=== PATIENT | male | born 1990 | race Caucasian/White ===

== ENCOUNTER 2018-05-05 07:20 | Inpatient (IN) | payer BC, OTHER ==
[2018-05-05] VITALS (12 sets, daily range): BP systolic 84–104; BP diastolic 59–69
[~2018-05-05] VITALS: Ht 170.2 cm; Wt 59.0 kg
[2018-05-05] MEDS ORDERED: potassium CL 20mEq in D5-1/2NS 1,000 ML IV PRN ×2 (07:26→13:25)
[2018-05-05] MEDS ORDERED: normal saline 1000ml 1,000 ML IV SCH (07:26)
[2018-05-05] MEDS: normal saline 1000ml 1,000 ML IV SCH ×5 (07:33→22:54)
[2018-05-05 07:56] LABS: BASOPHILS # (AUTO) 0.1 X10'3 (0-0.2); BASOPHILS % (AUTO) 0.4 % (0-1); EOSINOPHILS # (AUTO) 0.2 X10'3 (0-0.9); EOSINOPHILS % (AUTO) 0.8 % (0-6); HEMATOCRIT 46.6 % (42.0-52.0); HEMOGLOBIN 15.4 g/dl (14.0-17.9); LYMPHOCYTES # (AUTO) 3.8 X10'3 (1.1-4.8); LYMPHOCYTES % (AUTO) 15.9 % (21-51); MEAN CORPUSCULAR HEMOGLOBIN 31.6 PG (27.0-31.0); MEAN CORPUSCULAR VOLUME 95.7 FL (78-98); MEAN PLATELET VOLUME 8.1 FL (7.4-10.4); MONOCYTES # (AUTO) 2.7 X10'3 (0-0.9); MONOCYTES % (AUTO) 11.1 % (2-12); NEUTROPHILS # (AUTO) 17.2 X10'3 (1.8-7.7); NEUTROPHILS % (AUTO) 71.8 % (42-75); PLATELET COUNT 492 X10'3 (140-440); RED BLOOD COUNT 4.87 X10'6 (4.70-6.10); RED CELL DISTRIBUTION WIDTH 15.1 % (11.5-14.5); WHITE BLOOD COUNT 23.9 X10'3 (4.5-11.0)
[2018-05-05] MEDS: insulin regular, human 10 units/0.1 ml syringe IV PRN ×2 (07:59→12:03)
[2018-05-05 08:00] LABS: ABG HCO3 1.6 mmol/L (22.0-26.0); ABG OXYGEN SATURATION 97.8 % (95-98); ABG PCO2 (T) 11.7 mmHg (35.0-48.0); ABG PH (T) 6.751 (7.350-7.450); ABG PO2 (T) 157.7 mmHg (83-108); ALLEN'S TEST Positive; FCOHb 0.8 % (0.5-1.5); FMetHb 0.1 % (0.3-1.12); FO2Hb 96.9 % (94-100); TOTAL HEMOGLOBIN 13.5 G/dl (14.0-18.0)
[2018-05-05] MEDS ORDERED: sodium bicarbonate (0.9mEq/ml) 44.6 mEq/50ml syringe IV ONE (08:15)
[2018-05-05 08:19] LABS: ALANINE AMINOTRANSFERASE 16 U/L (12-78); ALBUMIN 3.6 G/DL (3.4-5.0); ALBUMIN/GLOBULIN RATIO 1.2 (1.1-1.5); ALKALINE PHOSPHATASE 154 IU/L (46-116); ASPARTATE AMINO TRANSFERASE 8 U/L (10-37); BILIRUBIN,TOTAL 0.5 MG/DL (0.1-1.0); BLOOD UREA NITROGEN 25 MG/DL (7-18); BUN/CREATININE RATIO 14.5 (5.4-32.0); CALCIUM 8.5 MG/DL (8.5-10.1); CHLORIDE 102 MMOL/L (99-107); CREATININE 1.73 MG/DL (0.60-1.10); MAGNESIUM 2.5 MG/DL (1.5-2.4); PHOSPHORUS 7.9 MG/DL (2.3-4.5); POTASSIUM 4.1 MMOL/L (3.5-5.1); SODIUM 138 MMOL/L (135-145); TOTAL PROTEIN 6.6 G/DL (6.4-8.2); eGFR 48 ML/MIN
[2018-05-05] MEDS ORDERED: sodium bicarbonate (8.4%) 1 mEq/ml syringe IV ONE (08:20)
[2018-05-05 08:25] LABS: ANION GAP 31 (8-16); GLUCOSE 560 MG/DL (70-104); TOTAL CARBON DIOXIDE < 5 MMOL/L (24-32)
[2018-05-05] MEDS ORDERED: NORMAL SALINE IV SCH (08:25)
[2018-05-05] MEDS ORDERED: SODIUM BICARBONATE IV SCH (08:25)
[2018-05-05] MEDS ORDERED: potassium Cl 20 mEq SR tablet PO STA (08:31)
[2018-05-05] MEDS: insulin regular, DKA only 100 UNIT in normal saline 100ml IV soln 99 ML IV SCH ×4 (08:52→11:32)
[2018-05-05 09:13] LABS: NUCLEATED RED BLOOD CELLS 1 /100WBC (0-0); PLATELET ESTIMATE INCREASED; SMUDGE CELLS 1+; TOTAL CELLS COUNTED 100
[2018-05-05 09:17] LABS: BURR CELLS FEW
[2018-05-05 09:25] LABS: CLARITY,URINE CLEAR (Clear); COLOR,URINE STRAW (Yellow); GLUCOSE, URINE >=1000 mg/dl (Neg); KETONES,URINE >=80 mg/dl (Neg); LEUKOCYTE ESTERASE ,URINE NEGATIVE (Neg); NITRITES, URINE NEGATIVE (Neg); OCCULT BLOOD,URINE TRACE-INTACT (Neg); PH,URINE 5.5 (4.8-8.0); PROTEIN,URINE 30 mg/dl (Neg); UROBILINOGEN,URINE 0.2 E.U/dL (0.2-1.0)
[2018-05-05 09:33] LABS: UA COLLECTION TYPE URINAL
[2018-05-05] MEDS ORDERED: insulin regular, DKA only 100 UNIT in normal saline 100ml IV soln 99 ML IV SCH ×2 (09:34)
[2018-05-05] MEDS ORDERED: potassium Cl 20 mEq SR tablet PO PRN ×2 (09:35)
[2018-05-05] MEDS ORDERED: ondansetron/PF 4mg/2ml inj IV PRN (09:35)
[2018-05-05] MEDS ORDERED: morphine 4 MG/ML inj SYRINge IV PRN (09:35)
[2018-05-05] MEDS ORDERED: potassium Cl 40MEQ/NS 500ml 500 ML IV PRN ×4 (09:35)
[2018-05-05] MEDS ORDERED: morphine 2 MG/ML inj. syringe IV PRN (09:35)
[2018-05-05] MEDS ORDERED: HYDROcodone/acetaminophen 10/325mg tab PO PRN (09:35)
[2018-05-05] MEDS ORDERED: acetaminophen 325mg tablet PO PRN ×2 (09:35)
[2018-05-05 09:37] LABS: MUCUS STRANDS FEW /LPF (Neg); SQUAMOUS EPITHELIAL CELL,UR FEW /LPF (FEW)
[2018-05-05 09:38] LABS: BACTERIA,URINE FEW /HPF (Neg); HYALINE CASTS 0-3 /LPF (NEGATIVE); RBC,URINE 0-2 /HPF (0-2); WBC,URINE 0-4 /HPF (0-4)
[2018-05-05] MEDS ORDERED: CefTRIAXone 2gm/D5W 50ml 50 ML IV ONE (10:15)
[2018-05-05 10:21] LABS: ALBUMIN 3.3 G/DL (3.4-5.0); BLOOD UREA NITROGEN 24 MG/DL (7-18); BUN/CREATININE RATIO 17.3 (5.4-32.0); CALCIUM 7.7 MG/DL (8.5-10.1); CHLORIDE 110 MMOL/L (99-107); CREATININE 1.39 MG/DL (0.60-1.10); GLUCOSE 402 MG/DL (70-104); POTASSIUM 3.2 MMOL/L (3.5-5.1); SODIUM 145 MMOL/L (135-145); eGFR 62 ML/MIN
[2018-05-05 10:22] LABS: ANION GAP 30 (8-16); TOTAL CARBON DIOXIDE < 5 MMOL/L (24-32)
[2018-05-05 11:58] LABS: ANION GAP 29 (8-16); BLOOD UREA NITROGEN 23 MG/DL (7-18); BUN/CREATININE RATIO 19.2 (5.4-32.0); CALCIUM 7.8 MG/DL (8.5-10.1); CHLORIDE 111 MMOL/L (99-107); GLUCOSE 307 MG/DL (70-104); POTASSIUM 3.4 MMOL/L (3.5-5.1); SODIUM 146 MMOL/L (135-145); eGFR 74 ML/MIN
[2018-05-05 12:02] LABS: TOTAL CARBON DIOXIDE 6.2 MMOL/L (24-32)
[2018-05-05] MEDS ORDERED: potassium CL 20mEq in D5-1/2NS 1,000 ML IV SCH (13:25)
[2018-05-05 14:36] LABS: ANION GAP 22 (8-16); BLOOD UREA NITROGEN 21 MG/DL (7-18); BUN/CREATININE RATIO 18.8 (5.4-32.0); CHLORIDE 115 MMOL/L (99-107); CREATININE 1.12 MG/DL (0.60-1.10); GLUCOSE 175 MG/DL (70-104); SODIUM 150 MMOL/L (135-145)
[2018-05-05 14:37] LABS: CALCIUM 8.2 MG/DL (8.5-10.1); eGFR 80 ML/MIN
[2018-05-05 14:45] LABS: POTASSIUM 2.9 MMOL/L (3.5-5.1); TOTAL CARBON DIOXIDE 13.3 MMOL/L (24-32)
[2018-05-05] MEDS: potassium Cl 20 mEq SR tablet PO PRN ×2 (14:49→20:00)
[2018-05-05] MEDS ORDERED: HUM7525 SQ (15:26)
[2018-05-05] MEDS ORDERED: GABA-532 PO (15:26)
[2018-05-05] MEDS ORDERED: LANTUS SQ (15:26)
[2018-05-05] MEDS: potassium CL 20mEq in D5-1/2NS 1,000 ML IV PRN ×2 (15:54→21:01)
[2018-05-05 16:49] LABS: HEMOGLOBIN A1C 11.3 % (4.5-6.2)
[2018-05-05 17:51] LABS: ALBUMIN 2.8 G/DL (3.4-5.0); ANION GAP 16 (8-16); BLOOD UREA NITROGEN 18 MG/DL (7-18); BUN/CREATININE RATIO 16.4 (5.4-32.0); CALCIUM 8.1 MG/DL (8.5-10.1); CHLORIDE 113 MMOL/L (99-107); GLUCOSE 129 MG/DL (70-104); PHOSPHORUS 1.5 MG/DL (2.3-4.5); POTASSIUM 3.1 MMOL/L (3.5-5.1); SODIUM 146 MMOL/L (135-145); TOTAL CARBON DIOXIDE 17.3 MMOL/L (24-32); eGFR 82 ML/MIN
[2018-05-05] MEDS: heparin, porcine 5000 units/ml vial SQ SCH (20:00)
[2018-05-05] MEDS ORDERED: insulin glargine (Lantus) pen - multi-dose SQ SCH ×2 (20:00→21:00)
[2018-05-05] MEDS: docusate sod 100mg capsule PO SCH (20:00)
[2018-05-05] MEDS ORDERED: glucagon, human recombinant 1mg kit SUBCUT PRN (20:15)
[2018-05-05] MEDS ORDERED: dextrose 50%-water 50ml dispensing syringe IV PRN ×2 (20:15)
[2018-05-05] MEDS ORDERED: dextrose ORAL solution 15 GM/59 ML bottle PO PRN ×2 (20:15)
[2018-05-05 20:24] LABS: ALBUMIN 2.8 G/DL (3.4-5.0); ANION GAP 12 (8-16); BLOOD UREA NITROGEN 16 MG/DL (7-18); BUN/CREATININE RATIO 17.6 (5.4-32.0); CALCIUM 8.1 MG/DL (8.5-10.1); CHLORIDE 114 MMOL/L (99-107); CREATININE 0.91 MG/DL (0.60-1.10); GLUCOSE 216 MG/DL (70-104); PHOSPHORUS 1.8 MG/DL (2.3-4.5); POTASSIUM 3.3 MMOL/L (3.5-5.1); SODIUM 145 MMOL/L (135-145); TOTAL CARBON DIOXIDE 18.6 MMOL/L (24-32); eGFR > 90 ML/MIN
[2018-05-05 21:00] LABS: ABG BASE EXCESS -6.9 mmol/L (-2.0-3.0); ABG HCO3 17.6 mmol/L (22.0-26.0); ABG OXYGEN SATURATION 97.1 % (95-98); ABG PCO2 (T) 32.4 mmHg (35.0-48.0); ABG PH (T) 7.353 (7.350-7.450); ABG PO2 (T) 102.5 mmHg (83-108); ALLEN'S TEST Positive; FCOHb 0.3 % (0.5-1.5); FMetHb 0.3 % (0.3-1.12); FO2Hb 96.5 % (94-100); TOTAL HEMOGLOBIN 12.9 G/dl (14.0-18.0)
[2018-05-05] MEDS: insulin glargine (Lantus) pen - multi-dose SQ SCH (21:18)
[2018-05-05] MEDS: insulin Lispro (HumaLOG) vial - multi-dose SQ SCH (21:51)
[2018-05-06] VITALS (12 sets, daily range): BP systolic 84–103; BP diastolic 58–71
[2018-05-06] MEDS: potassium Cl 20 mEq SR tablet PO PRN ×3 (01:18→12:16)
[2018-05-06 05:27] LABS: BASOPHILS # (AUTO) 0.1 X10'3 (0-0.2); BASOPHILS % (AUTO) 1.5 % (0-1); EOSINOPHILS # (AUTO) 0.1 X10'3 (0-0.9); HEMATOCRIT 35.8 % (42.0-52.0); HEMOGLOBIN 12.1 g/dl (14.0-17.9); LYMPHOCYTES # (AUTO) 1.3 X10'3 (1.1-4.8); LYMPHOCYTES % (AUTO) 16.7 % (21-51); MEAN CORPUSCULAR HEMOGLOBIN 31.5 PG (27.0-31.0); MEAN CORPUSCULAR HGB CONC 33.7 % (33.0-36.5); MEAN CORPUSCULAR VOLUME 93.2 FL (78-98); MEAN PLATELET VOLUME 8.2 FL (7.4-10.4); MONOCYTES # (AUTO) 0.9 X10'3 (0-0.9); MONOCYTES % (AUTO) 11.6 % (2-12); NEUTROPHILS # (AUTO) 5.6 X10'3 (1.8-7.7); NEUTROPHILS % (AUTO) 69.2 % (42-75); PLATELET COUNT 263 X10'3 (140-440); RED BLOOD COUNT 3.84 X10'6 (4.70-6.10); WHITE BLOOD COUNT 8.1 X10'3 (4.5-11.0)
[2018-05-06] MEDS: normal saline 1000ml 1,000 ML IV SCH (05:34)
[2018-05-06 05:40] LABS: ALANINE AMINOTRANSFERASE 12 U/L (12-78); ALBUMIN 2.7 G/DL (3.4-5.0); ALBUMIN/GLOBULIN RATIO 1.1 (1.1-1.5); ALKALINE PHOSPHATASE 101 IU/L (46-116); ANION GAP 10 (8-16); ASPARTATE AMINO TRANSFERASE 8 U/L (10-37); BILIRUBIN,TOTAL 0.5 MG/DL (0.1-1.0); BLOOD UREA NITROGEN 15 MG/DL (7-18); BUN/CREATININE RATIO 17.9 (5.4-32.0); CALCIUM 8.8 MG/DL (8.5-10.1); CHLORIDE 110 MMOL/L (99-107); CREATININE 0.84 MG/DL (0.60-1.10); GLUCOSE 120 MG/DL (70-104); MAGNESIUM 1.5 MG/DL (1.5-2.4); POTASSIUM 3.3 MMOL/L (3.5-5.1); SODIUM 141 MMOL/L (135-145); TOTAL PROTEIN 5.2 G/DL (6.4-8.2); eGFR > 90 ML/MIN
[2018-05-06] MEDS: docusate sod 100mg capsule PO SCH (07:59)
[2018-05-06] MEDS: heparin, porcine 5000 units/ml vial SQ SCH (07:59)
[2018-05-06] MEDS ORDERED: K and/or MAG REPLACEMENT MC SCH (08:00)
[2018-05-06] MEDS: insulin glargine (Lantus) pen - multi-dose SQ SCH (08:03)
[2018-05-06] MEDS: insulin Lispro (HumaLOG) vial - multi-dose SQ SCH ×2 (08:42→13:24)
== END 2018-05-06 13:29 | disposition home or self-care (01) | DRG 639 ==
LOC: ER 07:21 → ED HOLD 09:34 → ICU 2S 13:14
PROVIDERS: ADMIT Internal Medicine Critical Care Medicine; ATTEND Internal Medicine Critical Care Medicine
DX: E10.10 Type 1 diabetes mellitus with ketoacidosis without coma (principal); E87.6 Hypokalemia; G89.29 Other chronic pain; Z79.4 Long term (current) use of insulin; Z91.19 Patient's noncompliance with other medical treatment and regimen
CPT/HCPCS: 36415; 36600; 71045; 80048; 80053; 81001; 82803; 82948; 83036; 83605; 83735; 83930; 84100; 84145; 85018; 85025; 87040; 87070; 96361; 96365; 97116; 97162; 97530; 99291; G0378; J0696; J1644; J1815; J3480; J7030

== ENCOUNTER 2018-06-26 18:15 | Emergency (ER) | payer BC, MEDICAID, OTHER ==
[~2018-06-26] VITALS: Ht 154.9 cm; Wt 47.2 kg
[~2018-06-26 18:15] MED LIST: GABA-532 PO; HUM7525 SQ; LANTUS SQ
[2018-06-26] MEDS ORDERED: aspirin 81mg tab.chew PO ONE (18:25)
[2018-06-26] MEDS ORDERED: morphine 4 MG/ML inj SYRINge IV ONE (18:55)
[2018-06-26] MEDS ORDERED: normal saline 1000ML IV soln IVB ONE (18:55)
[2018-06-26] MEDS ORDERED: ondansetron/PF 4mg/2ml inj IV ONE (18:55)
[2018-06-26] MEDS ORDERED: LORazepam 2 mg/ml vial IV ONE (18:55)
[2018-06-26 18:56] LABS: BASOPHILS % (AUTO) 0.4 % (0-1); EOSINOPHILS # (AUTO) 0.1 X10'3 (0-0.9); EOSINOPHILS % (AUTO) 1.1 % (0-6); HEMATOCRIT 44.3 % (42.0-52.0); HEMOGLOBIN 15.2 g/dl (14.0-17.9); LYMPHOCYTES # (AUTO) 2.8 X10'3 (1.1-4.8); LYMPHOCYTES % (AUTO) 41.2 % (21-51); MEAN CORPUSCULAR HEMOGLOBIN 31.9 PG (27.0-31.0); MEAN CORPUSCULAR HGB CONC 34.4 % (33.0-36.5); MEAN CORPUSCULAR VOLUME 92.6 FL (78-98); MONOCYTES # (AUTO) 0.7 X10'3 (0-0.9); MONOCYTES % (AUTO) 10.1 % (2-12); NEUTROPHILS # (AUTO) 3.2 X10'3 (1.8-7.7); NEUTROPHILS % (AUTO) 47.2 % (42-75); PLATELET COUNT 423 X10'3 (140-440); RED BLOOD COUNT 4.78 X10'6 (4.70-6.10); RED CELL DISTRIBUTION WIDTH 14.2 % (11.5-14.5); WHITE BLOOD COUNT 6.8 X10'3 (4.5-11.0)
[2018-06-26] MEDS ORDERED: iohexol 350MG/ML 100ml bottle IV ONE (18:56)
[2018-06-26 19:02] LABS: ALANINE AMINOTRANSFERASE 25 U/L (12-78); ALBUMIN 3.9 G/DL (3.4-5.0); ALBUMIN/GLOBULIN RATIO 1.3 (1.1-1.5); ALKALINE PHOSPHATASE 120 IU/L (46-116); ANION GAP 15 (8-16); ASPARTATE AMINO TRANSFERASE 4 U/L (10-37); BILIRUBIN,TOTAL 0.7 MG/DL (0.1-1.0); BLOOD UREA NITROGEN 17 MG/DL (7-18); BUN/CREATININE RATIO 17.2 (5.4-32.0); CALCIUM 9.1 MG/DL (8.5-10.1); CHLORIDE 99 MMOL/L (99-107); CREATININE 0.99 MG/DL (0.60-1.10); GLUCOSE 214 MG/DL (70-104); SODIUM 138 MMOL/L (135-145); TOTAL CARBON DIOXIDE 23.8 MMOL/L (24-32); eGFR > 90 ML/MIN
[2018-06-26] MEDS ORDERED: potassium Cl 20 mEq SR tablet PO STA (19:08)
[2018-06-26 19:10] LABS: INR 0.9 INR; PARTIAL THROMBOPLASTIN TIME 24 SECONDS (22-32); PROTHROMBIN TIME 9.5 SECONDS (9.0-12.0)
[2018-06-26 19:26] LABS: ABG BASE EXCESS -3.2 mmol/L (-2.0-3.0); ABG HCO3 21.2 mmol/L (22.0-26.0); ABG OXYGEN SATURATION 92.3 % (95-98); ABG PCO2 (T) 36.2 mmHg (35.0-48.0); ABG PH (T) 7.386 (7.350-7.450); ABG PO2 (T) 65.9 mmHg (83-108); FCOHb 3.8 % (0.5-1.5); FMetHb 0.3 % (0.3-1.12); FO2Hb 88.5 % (94-100); RESPIRATORY RATE (OBSERVED) 15 b/min; TOTAL HEMOGLOBIN 13.2 G/dl (14.0-18.0)
--- NOTE | 2018-06-26 19:40 | NUR ---
UNABLE TO PULL K-DUR, DESPITE CALLS TO PHARMACY
[2018-06-26 20:06] LABS: URINE AMPHETAMINE SCREEN NEGATIVE (Neg); URINE BARBITUATE SCREEN NEGATIVE (Neg); URINE BENZODIAZEPINES SCREEN NEGATIVE (Neg); URINE CANNABINOID SCREEN NEGATIVE (Neg); URINE COCAINE SCREEN NEGATIVE (Neg); URINE METHADONE SCREEN NEGATIVE (Neg); URINE OPIATE SCREEN POSITIVE (Neg); URINE PHENCYCLIDINE SCREEN NEGATIVE (Neg)
[2018-06-26] MEDS ORDERED: ACET-3067 PO (20:14)
[2018-06-26 20:23] VITALS: BP 120/82
== END 2018-06-26 20:36 | disposition home or self-care (01) ==
LOC: ER 18:15
DX: R07.81 Pleurodynia (principal); E10.9 Type 1 diabetes mellitus without complications; G89.29 Other chronic pain; M54.9 Dorsalgia, unspecified; F12.90 Cannabis use, unspecified, uncomplicated; Z79.4 Long term (current) use of insulin
CPT/HCPCS: 36415; 36600; 71045; 71275; 80053; 80305; 82803; 82948; 84484; 85018; 85025; 85610; 85730; 93005; 96374; 96375; 99284; J2060; J2270; J2405; J7030; Q9967; 96361

== ENCOUNTER 2018-06-28 18:40 | Emergency (ER) | payer BC, MEDICAID, OTHER ==
[~2018-06-28] VITALS: Ht 175.3 cm; Wt 56.8 kg
[~2018-06-28 18:40] MED LIST changes: +ACET-3067 PO
[2018-06-28 19:06] LABS: BASOPHILS % (AUTO) 0.6 % (0-1); EOSINOPHILS # (AUTO) 0.1 X10'3 (0-0.9); EOSINOPHILS % (AUTO) 1.2 % (0-6); HEMATOCRIT 48.5 % (42.0-52.0); HEMOGLOBIN 16.8 g/dl (14.0-17.9); LYMPHOCYTES # (AUTO) 2.5 X10'3 (1.1-4.8); LYMPHOCYTES % (AUTO) 38.4 % (21-51); MEAN CORPUSCULAR HEMOGLOBIN 31.9 PG (27.0-31.0); MEAN CORPUSCULAR HGB CONC 34.7 % (33.0-36.5); MEAN CORPUSCULAR VOLUME 92.1 FL (78-98); MEAN PLATELET VOLUME 7.2 FL (7.4-10.4); MONOCYTES # (AUTO) 0.5 X10'3 (0-0.9); MONOCYTES % (AUTO) 7.8 % (2-12); NEUTROPHILS # (AUTO) 3.4 X10'3 (1.8-7.7); PLATELET COUNT 535 X10'3 (140-440); RED BLOOD COUNT 5.27 X10'6 (4.70-6.10); RED CELL DISTRIBUTION WIDTH 14.3 % (11.5-14.5); WHITE BLOOD COUNT 6.5 X10'3 (4.5-11.0)
[2018-06-28 19:27] LABS: PARTIAL THROMBOPLASTIN TIME 25 SECONDS (22-32); PROTHROMBIN TIME 9.7 SECONDS (9.0-12.0)
[2018-06-28 19:28] LABS: ALANINE AMINOTRANSFERASE 21 U/L (12-78); ALBUMIN 4.2 G/DL (3.4-5.0); ALBUMIN/GLOBULIN RATIO 1.2 (1.1-1.5); ALKALINE PHOSPHATASE 119 IU/L (46-116); ANION GAP 20 (8-16); ASPARTATE AMINO TRANSFERASE 0 U/L (10-37); BILIRUBIN,TOTAL 0.6 MG/DL (0.1-1.0); BLOOD UREA NITROGEN 14 MG/DL (7-18); BUN/CREATININE RATIO 12.8 (5.4-32.0); CALCIUM 9.3 MG/DL (8.5-10.1); CHLORIDE 98 MMOL/L (99-107); CREATININE 1.09 MG/DL (0.60-1.10); GLUCOSE 265 MG/DL (70-104); POTASSIUM 3.1 MMOL/L (3.5-5.1); SODIUM 138 MMOL/L (135-145); TOTAL CARBON DIOXIDE 19.8 MMOL/L (24-32); TOTAL PROTEIN 7.6 G/DL (6.4-8.2); eGFR 82 ML/MIN
[2018-06-28] MEDS ORDERED: ondansetron/PF 4mg/2ml inj IV ONE (20:20)
[2018-06-28 20:25] LABS: ETHANOL < 0.010 GM/DL (0.0-0.010)
[2018-06-28] MEDS ORDERED: sucralfate 1 gm tablet PO ONE (20:35)
[2018-06-28] MEDS ORDERED: LIDOcaine Viscous 15ml cup PO ONE (20:35)
[2018-06-28] MEDS ORDERED: mag hydrox/Alum hydrox/simeth 30ml oral suspension PO ONE (20:35)
[2018-06-28] MEDS ORDERED: famotidine/PF 10 mg/ml inj IV ONE (20:35)
[2018-06-28] MEDS: morphine 4 MG/ML inj SYRINge IV PRN ×2 (20:35→21:44)
[2018-06-28] MEDS ORDERED: potassium Cl oral solution 20 MEQ/15 ML PO ONE (20:55)
[2018-06-28 20:56] LABS: CLARITY,URINE CLEAR (Clear); COLOR,URINE YELLOW (Yellow); GLUCOSE, URINE >=1000 mg/dl (Neg); KETONES,URINE >=80 mg/dl (Neg); LEUKOCYTE ESTERASE ,URINE NEGATIVE (Neg); NITRITES, URINE NEGATIVE (Neg); OCCULT BLOOD,URINE NEGATIVE (Neg); PROTEIN,URINE 30 mg/dl (Neg); UROBILINOGEN,URINE 0.2 E.U/dL (0.2-1.0)
[2018-06-28 21:03] LABS: UA COLLECTION TYPE CLN CATCH MIDSTREAM
[2018-06-28 21:07] LABS: BACTERIA,URINE FEW /HPF (Neg); RBC,URINE 0-2 /HPF (0-2); SQUAMOUS EPITHELIAL CELL,UR NONE SEEN /LPF (FEW); WBC,URINE 0-4 /HPF (0-4)
[2018-06-28 21:11] LABS: URINE AMPHETAMINE SCREEN NEGATIVE (Neg); URINE BARBITUATE SCREEN NEGATIVE (Neg); URINE BENZODIAZEPINES SCREEN NEGATIVE (Neg); URINE CANNABINOID SCREEN NEGATIVE (Neg); URINE COCAINE SCREEN NEGATIVE (Neg); URINE METHADONE SCREEN NEGATIVE (Neg); URINE OPIATE SCREEN POSITIVE (Neg); URINE PHENCYCLIDINE SCREEN NEGATIVE (Neg)
[2018-06-28 21:18] LABS: D-DIMER < 0.19 MG/L FEU (0-0.50)
[2018-06-28] MEDS ORDERED: ketorolac trometh. 30mg/ml inj. IV ONE (21:25)
[2018-06-28 21:51] VITALS: BP 116/85
== END 2018-06-28 21:51 | disposition home or self-care (01) ==
LOC: ER 18:40
DX: E10.65 Type 1 diabetes mellitus with hyperglycemia (principal); E86.0 Dehydration; E87.6 Hypokalemia; G89.29 Other chronic pain; M54.9 Dorsalgia, unspecified; F12.90 Cannabis use, unspecified, uncomplicated
CPT/HCPCS: 36415; 71045; 80053; 80305; 80320; 81001; 82948; 84484; 85025; 85379; 85610; 85730; 93005; 96374; 96375; 99284; J1885; J2270; J2405; J3490

== ENCOUNTER 2018-07-08 21:25 | Emergency (ER) | payer BC, MEDICAID, OTHER ==
[~2018-07-08] VITALS: Ht 175.3 cm; Wt 54.8 kg
[~2018-07-08 21:25] MED LIST changes: -ACET-3067 PO
[2018-07-08 21:33] VITALS: BP 122/87
[2018-07-08] MEDS ORDERED: ketorolac tromethamine 15mg/ml inj. IM ONE (22:20)
[2018-07-08 22:55] LABS: CLARITY,URINE CLEAR (Clear); COLOR,URINE YELLOW (Yellow); GLUCOSE, URINE >=1000 mg/dl (Neg); KETONES,URINE 40 mg/dl (Neg); LEUKOCYTE ESTERASE ,URINE NEGATIVE (Neg); NITRITES, URINE NEGATIVE (Neg); OCCULT BLOOD,URINE NEGATIVE (Neg); PROTEIN,URINE NEGATIVE (Neg); UROBILINOGEN,URINE 0.2 E.U/dL (0.2-1.0)
[2018-07-08 23:03] LABS: UA COLLECTION TYPE CLN CATCH MIDSTREAM
[2018-07-08 23:05] LABS: BACTERIA,URINE FEW /HPF (Neg); RBC,URINE 0-2 /HPF (0-2); SQUAMOUS EPITHELIAL CELL,UR FEW /LPF (FEW); WBC,URINE NONE SEEN /HPF (0-4)
[2018-07-08] MEDS ORDERED: TRAM1TAB7 PO (23:07)
== END 2018-07-08 23:18 | disposition home or self-care (01) ==
LOC: ER 21:25
DX: N50.819 Testicular pain, unspecified (principal); E11.9 Type 2 diabetes mellitus without complications; G89.29 Other chronic pain; F12.90 Cannabis use, unspecified, uncomplicated; Z79.4 Long term (current) use of insulin; Z79.899 Other long term (current) drug therapy
CPT/HCPCS: 36415; 81001; 87491; 87591; 96372; 99283; J1885

== ENCOUNTER 2018-07-11 16:51 | Emergency (ER) | payer BC, MEDICAID, OTHER ==
[~2018-07-11] VITALS: Ht 175.3 cm; Wt 55.9 kg
[~2018-07-11 16:51] MED LIST changes: +TRAM1TAB7 PO
[2018-07-11] MEDS ORDERED: ondansetron/PF 4mg/2ml inj IV ONE (17:05)
[2018-07-11] MEDS ORDERED: normal saline 1000ML IV soln IVB ONE (17:05)
[2018-07-11 17:23] LABS: BASOPHILS % (AUTO) 0.3 % (0-1); EOSINOPHILS # (AUTO) 0.1 X10'3 (0-0.9); EOSINOPHILS % (AUTO) 0.8 % (0-6); HEMATOCRIT 50.5 % (42.0-52.0); HEMOGLOBIN 17.4 g/dl (14.0-17.9); LYMPHOCYTES % (AUTO) 25.8 % (21-51); MEAN CORPUSCULAR HEMOGLOBIN 31.6 PG (27.0-31.0); MEAN CORPUSCULAR HGB CONC 34.4 g/dL (33.0-36.5); MEAN CORPUSCULAR VOLUME 91.8 FL (78-98); MEAN PLATELET VOLUME 7.7 FL (7.4-10.4); MONOCYTES # (AUTO) 0.6 X10'3 (0-0.9); NEUTROPHILS # (AUTO) 5.2 X10'3 (1.8-7.7); NEUTROPHILS % (AUTO) 66.1 % (42-75); PLATELET COUNT 399 X10'3 (140-440); RED CELL DISTRIBUTION WIDTH 14.1 % (11.5-14.5); WHITE BLOOD COUNT 7.9 X10'3 (4.5-11.0)
[2018-07-11 17:42] LABS: ALANINE AMINOTRANSFERASE 24 U/L (12-78); ALBUMIN/GLOBULIN RATIO 1.2 (1.1-1.5); ALKALINE PHOSPHATASE 121 IU/L (46-116); ANION GAP 23 (8-16); ASPARTATE AMINO TRANSFERASE 11 U/L (10-37); BILIRUBIN,TOTAL 0.9 MG/DL (0.1-1.0); BLOOD UREA NITROGEN 19 MG/DL (7-18); CALCIUM 9.4 MG/DL (8.5-10.1); CHLORIDE 98 MMOL/L (99-107); CREATININE 1.12 MG/DL (0.60-1.10); GLUCOSE 292 MG/DL (70-104); LIPASE 77 U/L (73-393); POTASSIUM 4.1 MMOL/L (3.5-5.1); SODIUM 136 MMOL/L (135-145); TOTAL CARBON DIOXIDE 15.4 MMOL/L (24-32); TOTAL PROTEIN 7.4 G/DL (6.4-8.2); eGFR 80 ML/MIN
[2018-07-11 18:13] LABS: D-DIMER < 0.19 MG/L FEU (0-0.50)
[2018-07-11 18:16] LABS: CLARITY,URINE CLEAR (Clear); COLOR,URINE STRAW (Yellow); GLUCOSE, URINE 500 mg/dl (Neg); KETONES,URINE >=80 mg/dl (Neg); LEUKOCYTE ESTERASE ,URINE NEGATIVE (Neg); NITRITES, URINE NEGATIVE (Neg); OCCULT BLOOD,URINE NEGATIVE (Neg); PH,URINE 5.5 (4.8-8.0); PROTEIN,URINE TRACE mg/dl (Neg); UROBILINOGEN,URINE 0.2 E.U/dL (0.2-1.0)
[2018-07-11 18:24] LABS: MUCUS STRANDS NONE SEEN /LPF (Neg); RENAL CELLS, URINE FEW /HPF; SQUAMOUS EPITHELIAL CELL,UR NONE SEEN /LPF (FEW); UA COLLECTION TYPE CLN CATCH MIDSTREAM
[2018-07-11 18:25] LABS: BACTERIA,URINE NONE SEEN /HPF (Neg); RBC,URINE 0-2 /HPF (0-2); WBC,URINE 0-4 /HPF (0-4)
[2018-07-11] MEDS ORDERED: LORazepam 2 mg/ml vial IV ONE (18:25)
[2018-07-11] MEDS ORDERED: ketorolac trometh. 30mg/ml inj. IV ONE (18:25)
[2018-07-11 18:27] LABS: URINE AMPHETAMINE SCREEN NEGATIVE (Neg); URINE BARBITUATE SCREEN NEGATIVE (Neg); URINE BENZODIAZEPINES SCREEN NEGATIVE (Neg); URINE CANNABINOID SCREEN NEGATIVE (Neg); URINE COCAINE SCREEN NEGATIVE (Neg); URINE METHADONE SCREEN NEGATIVE (Neg); URINE OPIATE SCREEN NEGATIVE (Neg); URINE PHENCYCLIDINE SCREEN NEGATIVE (Neg)
[2018-07-11 19:22] VITALS: BP 109/78
== END 2018-07-11 19:23 | disposition home or self-care (01) ==
LOC: ER 16:52
DX: R07.1 Chest pain on breathing (principal); R00.0 Tachycardia, unspecified; R06.02 Shortness of breath; R11.0 Nausea; R10.9 Unspecified abdominal pain; G89.29 Other chronic pain; E10.9 Type 1 diabetes mellitus without complications; F17.200 Nicotine dependence, unspecified, uncomplicated; F12.90 Cannabis use, unspecified, uncomplicated; Z79.4 Long term (current) use of insulin
CPT/HCPCS: 36415; 71045; 80053; 80305; 81001; 83690; 84484; 85025; 85379; 93005; 96374; 96375; 99284; J1885; J2060; J2405; J7030

== ENCOUNTER 2018-07-23 12:04 | Inpatient (IN) | payer BC, MEDICAID, OTHER ==
[~2018-07-23] VITALS: Ht 175.3 cm; Wt 49.0 kg
[~2018-07-23 12:04] MED LIST changes: -TRAM1TAB7 PO
[2018-07-23] MEDS ORDERED: normal saline 1000ML IV soln IV ONE (12:25)
[2018-07-23] MEDS ORDERED: ondansetron/PF 4mg/2ml inj IV ONE (12:30)
[2018-07-23] MEDS ORDERED: insulin regular, human 10 units/0.1 ml syringe IV ONE (12:30)
[2018-07-23] MEDS ORDERED: insulin regular, human 100 UNIT in normal saline 100ml IV soln 100 ML IV PRN ×2 (12:30)
[2018-07-23] MEDS ORDERED: morphine 2 MG/ML inj. syringe IV PRN (12:30)
[2018-07-23 12:45] LABS: BASOPHILS % (AUTO) 0.3 % (0-1); EOSINOPHILS % (AUTO) 0.1 % (0-6); HEMATOCRIT 51.1 % (42.0-52.0); HEMOGLOBIN 17.6 g/dl (14.0-17.9); LYMPHOCYTES # (AUTO) 1.5 X10'3 (1.1-4.8); LYMPHOCYTES % (AUTO) 19.1 % (21-51); MEAN CORPUSCULAR HEMOGLOBIN 31.5 PG (27.0-31.0); MEAN CORPUSCULAR HGB CONC 34.4 g/dL (33.0-36.5); MEAN CORPUSCULAR VOLUME 91.6 FL (78-98); MEAN PLATELET VOLUME 7.8 FL (7.4-10.4); MONOCYTES # (AUTO) 0.6 X10'3 (0-0.9); MONOCYTES % (AUTO) 7.4 % (2-12); NEUTROPHILS # (AUTO) 5.7 X10'3 (1.8-7.7); NEUTROPHILS % (AUTO) 73.1 % (42-75); PLATELET COUNT 462 X10'3 (140-440); RED BLOOD COUNT 5.58 X10'6 (4.70-6.10); RED CELL DISTRIBUTION WIDTH 13.9 % (11.5-14.5); WHITE BLOOD COUNT 7.8 X10'3 (4.5-11.0)
[2018-07-23 12:57] LABS: PROTHROMBIN TIME 10.2 SECONDS (9.0-12.0)
[2018-07-23 13:10] LABS: ALANINE AMINOTRANSFERASE 21 U/L (12-78); ALBUMIN 4.1 G/DL (3.4-5.0); ALBUMIN/GLOBULIN RATIO 1.2 (1.1-1.5); ALKALINE PHOSPHATASE 113 IU/L (46-116); ANION GAP 25 (8-16); ASPARTATE AMINO TRANSFERASE 9 U/L (10-37); BILIRUBIN,TOTAL 0.9 MG/DL (0.1-1.0); BLOOD UREA NITROGEN 25 MG/DL (7-18); BUN/CREATININE RATIO 17.7 (5.4-32.0); CALCIUM 9.1 MG/DL (8.5-10.1); CHLORIDE 90 MMOL/L (99-107); CREATININE 1.41 MG/DL (0.60-1.10); LIPASE 102 U/L (73-393); MAGNESIUM 1.9 MG/DL (1.5-2.4); SODIUM 125 MMOL/L (135-145); TOTAL PROTEIN 7.5 G/DL (6.4-8.2); eGFR 61 ML/MIN
[2018-07-23 13:12] LABS: GLUCOSE 600 MG/DL (70-104); TOTAL CARBON DIOXIDE 10.4 MMOL/L (24-32)
[2018-07-23] MEDS ORDERED: normal saline 1000ml 1,000 ML IV SCH (14:18)
[2018-07-23] MEDS ORDERED: acetaminophen 325mg tablet PO PRN ×2 (14:20)
[2018-07-23] MEDS ORDERED: magnesium 2GM in 50ml NS 50 ML IV PRN (14:20)
[2018-07-23] MEDS ORDERED: dextrose ORAL solution 15 GM/59 ML bottle PO PRN ×2 (14:20)
[2018-07-23] MEDS ORDERED: magnesium Cl slow-release 64mg tablet PO PRN (14:20)
[2018-07-23] MEDS ORDERED: potassium Cl 40MEQ/NS 500ml 500 ML IV PRN ×4 (14:20→14:25)
[2018-07-23] MEDS ORDERED: HYDROcodone/acetaminophen 5mg/325mg tablet PO PRN (14:20)
[2018-07-23] MEDS ORDERED: magnesium hydroxide 30ml (MOM) UD suspension PO PRN (14:20)
[2018-07-23] MEDS ORDERED: glucagon, human recombinant 1mg kit SUBCUT PRN (14:20)
[2018-07-23] MEDS ORDERED: mag hydrox/Alum hydrox/simeth 30ml oral suspension PO PRN (14:20)
[2018-07-23] MEDS ORDERED: ondansetron/PF 4mg/2ml inj IV PRN (14:20)
[2018-07-23] MEDS ORDERED: dextrose 50%-water 50ml dispensing syringe IV PRN ×2 (14:20)
[2018-07-23] MEDS ORDERED: magnesium 4gm in 100ml NS 100 ML IV PRN (14:20)
[2018-07-23] MEDS ORDERED: potassium Cl 20 mEq SR tablet PO PRN ×3 (14:20→14:25)
[2018-07-23] MEDS ORDERED: morphine 4 MG/ML inj SYRINge IV PRN (14:20)
[2018-07-23] MEDS ORDERED: MESSAGE TO PHARMACY PO ONE (14:20)
[2018-07-23] MEDS ORDERED: sodium bicarbonate (8.4%) inj. 100 MEQ in dextrose 5% water 500ml 500 ML IV PRN (14:24)
[2018-07-23] MEDS ORDERED: sodium bicarbonate (8.4%) inj. 50 MEQ in dextrose 5% water 500ml 250 ML IV PRN (14:24)
[2018-07-23] MEDS ORDERED: potassium CL 20mEq in D5-1/2NS 1,000 ML IV PRN (14:24)
[2018-07-23] MEDS ORDERED: insulin regular, DKA only 100 UNIT in normal saline 100ml IV soln 99 ML IV SCH ×2 (14:24)
[2018-07-23] MEDS ORDERED: sodium phosphate inj. 15 MMOL in dextrose 5%-water 150 ML IV PRN (14:25)
[2018-07-23] MEDS ORDERED: Neutra Phos packet PO PRN (14:25)
[2018-07-23] MEDS ORDERED: insulin regular, human vial - multi-dose IV PRN (14:25)
[2018-07-23] MEDS ORDERED: sodium phosphate inj. 30 MMOL in dextrose 5%-water 250 ML IV PRN (14:25)
[2018-07-23 14:49] LABS: HEMOGLOBIN A1C 9.7 % (4.5-6.2)
[2018-07-23] MEDS: normal saline 1000ml 1,000 ML IV SCH ×3 (15:39→21:34)
[2018-07-23 17:25] VITALS: BP 114/82
--- NOTE | 2018-07-23 17:36 | NUR ---
received report from SILVIA Black in ER. pt arrived to unit in stable condition, pt alert and oriented, lungs clear, no complaints of nausea or vomiting. pt oriented to room, bed in low position, locked. pt placed on tele. called lab to come draw labs. glucose [id number]
[2018-07-23] MEDS: dextrose 5%-1/2 normal saline 1,000 ML IV SCH (17:57)
--- NOTE | 2018-07-23 18:04 | NUR ---
mrsa nare swab collected and sent to lab
[2018-07-23 18:22] LABS: ALANINE AMINOTRANSFERASE 18 U/L (12-78); ALBUMIN 3.3 G/DL (3.4-5.0); ALBUMIN/GLOBULIN RATIO 1.2 (1.1-1.5); ALKALINE PHOSPHATASE 89 IU/L (46-116); ANION GAP 15 (8-16); ASPARTATE AMINO TRANSFERASE 7 U/L (10-37); BILIRUBIN,TOTAL 0.6 MG/DL (0.1-1.0); BLOOD UREA NITROGEN 22 MG/DL (7-18); BUN/CREATININE RATIO 19.5 (5.4-32.0); CALCIUM 8.5 MG/DL (8.5-10.1); CHLORIDE 103 MMOL/L (99-107); CREATININE 1.13 MG/DL (0.60-1.10); GLUCOSE 238 MG/DL (70-104); POTASSIUM 3.3 MMOL/L (3.5-5.1); SODIUM 136 MMOL/L (135-145); TOTAL CARBON DIOXIDE 17.6 MMOL/L (24-32); eGFR 79 ML/MIN
--- NOTE | 2018-07-23 18:35 | NUR ---
Problems reprioritized. Patient report given, questions answered & plan of care reviewed with MEG RN AND SILVIA PLATT. SBAR AND BEDSIDE REPORT GIVEN
[2018-07-23 19:00] VITALS: BP 114/82
[2018-07-23] MEDS: heparin, porcine 5000 units/ml vial SQ SCH (19:57)
[2018-07-23] MEDS ORDERED: temazepam 15mg capsule PO PRN (21:00)
[2018-07-23] MEDS ORDERED: insulin glargine (Lantus) pen - multi-dose SQ SCH (21:00)
[2018-07-23 22:05] LABS: ALBUMIN 3.2 G/DL (3.4-5.0); ANION GAP 11 (8-16); BLOOD UREA NITROGEN 19 MG/DL (7-18); CALCIUM 8.8 MG/DL (8.5-10.1); CHLORIDE 104 MMOL/L (99-107); CREATININE 0.95 MG/DL (0.60-1.10); GLUCOSE 129 MG/DL (70-104); POTASSIUM 3.1 MMOL/L (3.5-5.1); SODIUM 138 MMOL/L (135-145); TOTAL CARBON DIOXIDE 22.6 MMOL/L (24-32); eGFR > 90 ML/MIN
[2018-07-23 23:00] VITALS: BP 105/69
[2018-07-23] MEDS: insulin Lispro (HumaLOG) vial - multi-dose SQ SCH (23:12)
[2018-07-24] MEDS: dextrose 5%-1/2 normal saline 1,000 ML IV SCH (00:30)
[2018-07-24] MEDS: potassium Cl 20 mEq SR tablet PO PRN ×2 (01:09→08:28)
[2018-07-24] MEDS: normal saline 1000ml 1,000 ML IV SCH (02:24)
[2018-07-24 03:00] VITALS: BP 113/75
[2018-07-24] MEDS ORDERED: normal saline 1000ml 1,000 ML IV SCH (04:20)
--- NOTE | 2018-07-24 04:22 | NUR ---
Pt tolerated PO meal @ 2300, subQ insulin administered per protocol. IV insulin and D5 1/2 NS D/Efrain at midnight (0000), Lantus administered @0100 as ordered. Will cont to monitor.
[2018-07-24 05:32] LABS: BASOPHILS % (AUTO) 0.3 % (0-1); EOSINOPHILS # (AUTO) 0.1 X10'3 (0-0.9); HEMATOCRIT 40.1 % (42.0-52.0); LYMPHOCYTES # (AUTO) 1.8 X10'3 (1.1-4.8); LYMPHOCYTES % (AUTO) 23.3 % (21-51); MEAN CORPUSCULAR HEMOGLOBIN 31.1 PG (27.0-31.0); MEAN CORPUSCULAR HGB CONC 34.8 g/dL (33.0-36.5); MEAN CORPUSCULAR VOLUME 89.2 FL (78-98); MEAN PLATELET VOLUME 7.6 FL (7.4-10.4); MONOCYTES # (AUTO) 0.8 X10'3 (0-0.9); MONOCYTES % (AUTO) 10.3 % (2-12); NEUTROPHILS % (AUTO) 65.1 % (42-75); PLATELET COUNT 353 X10'3 (140-440); RED BLOOD COUNT 4.49 X10'6 (4.70-6.10); RED CELL DISTRIBUTION WIDTH 14.5 % (11.5-14.5); WHITE BLOOD COUNT 7.6 X10'3 (4.5-11.0)
[2018-07-24 05:55] LABS: ANION GAP 11 (8-16); BLOOD UREA NITROGEN 22 MG/DL (7-18); BUN/CREATININE RATIO 23.4 (5.4-32.0); CALCIUM 8.3 MG/DL (8.5-10.1); CHLORIDE 105 MMOL/L (99-107); CHOL/HDL RATIO 3.7 (0.00-4.99); CHOLESTEROL 142 MG/DL (0-200); CREATININE 0.94 MG/DL (0.60-1.10); GLUCOSE 332 MG/DL (70-104); HDL CHOLESTEROL 38 MG/DL (35-60); LDL CHOLESTEROL 91 MG/DL (50-100); MAGNESIUM 1.8 MG/DL (1.5-2.4); PHOSPHORUS 3.5 MG/DL (2.3-4.5); POTASSIUM 3.4 MMOL/L (3.5-5.1); SODIUM 137 MMOL/L (135-145); TOTAL CARBON DIOXIDE 20.6 MMOL/L (24-32); TRIGLYCERIDES 109 MG/DL (20-135); eGFR > 90 ML/MIN
[2018-07-24 06:00] VITALS: BP 113/78
[2018-07-24] MEDS: insulin Lispro (HumaLOG) vial - multi-dose SQ SCH ×3 (07:06→12:47)
[2018-07-24] MEDS ORDERED: insulin glargine (Lantus) pen - multi-dose SQ ONE (07:50)
[2018-07-24] MEDS: heparin, porcine 5000 units/ml vial SQ SCH (07:59)
[2018-07-24] MEDS ORDERED: K and/or MAG REPLACEMENT MC SCH ×2 (08:00)
[2018-07-24] MEDS ORDERED: insulin Lispro (HumaLOG) vial - multi-dose SQ ONE (09:20)
[2018-07-24 11:00] VITALS: BP 104/75
[2018-07-24] MEDS ORDERED: POTA20TA19 PO (12:55)
--- NOTE | 2018-07-24 14:57 | NUR ---
DM Consult: Pt admit w/ DKA hx T1DM was d/c within 24 hours from admit prior to RD visit. Same instance last DKA admit in Apr 2018. RD mailed written DM ed handout and RD contact information to pt home address. Addendum: 07/24/18 at [address] Amended: Links added.
== END 2018-07-24 13:30 | disposition home or self-care (01) | DRG 638 ==
LOC: ER 12:05 → ED HOLD 14:23 → PCU 3S 17:20
PROVIDERS: ADMIT Internal Medicine; ATTEND Internal Medicine
DX: E10.10 Type 1 diabetes mellitus with ketoacidosis without coma (principal); E87.0 Hyperosmolality and hypernatremia; E87.1 Hypo-osmolality and hyponatremia; E10.42 Type 1 diabetes mellitus with diabetic polyneuropathy; E10.43 Type 1 diabetes mellitus with diabetic autonomic (poly)neuropathy; E87.6 Hypokalemia; F17.210 Nicotine dependence, cigarettes, uncomplicated; G89.4 Chronic pain syndrome; K21.9 Gastro-esophageal reflux disease without esophagitis; K31.84 Gastroparesis; N52.9 Male erectile dysfunction, unspecified; Z79.4 Long term (current) use of insulin
CPT/HCPCS: 36415; 71045; 80048; 80053; 80061; 82948; 83036; 83605; 83690; 83735; 84100; 84145; 85025; 85610; 87040; 87070; 93005; 96374; 96375; 97162; 99291; G0378; J1644; J1815; J2405; J7030

== ENCOUNTER 2018-08-23 16:00 | Inpatient (IN) | payer BC, MEDICAID, OTHER | END 2018-08-24 11:45 | disposition home or self-care (01) | LOC: ER 16:00 → ED HOLD 20:18 ==

== ENCOUNTER 2018-10-17 00:30 | Outpatient (CLI) | payer BC, OTHER ==
[~2018-10-17 00:30] MED LIST changes: +DIAZ5TAB PO; +IBUP-1984 PO
== END 2018-10-17 23:59 | disposition home or self-care (01) ==
LOC: DIABETIC 00:30
PROVIDERS: ATTEND Specialist
DX: E10.9 Type 1 diabetes mellitus without complications (principal); Z79.4 Long term (current) use of insulin
CPT/HCPCS: G0108

== ENCOUNTER 2018-11-02 22:08 | Emergency (ER) | payer BC, OTHER ==
[~2018-11-02] VITALS: Ht 172.7 cm; Wt 54.5 kg
[~2018-11-02 22:08] MED LIST changes: -IBUP-1984 PO
[2018-11-02 23:04] LABS: BASOPHILS # (AUTO) 0.1 X10'3 (0-0.2); BASOPHILS % (AUTO) 0.6 % (0-1); EOSINOPHILS # (AUTO) 0.1 X10'3 (0-0.9); EOSINOPHILS % (AUTO) 0.7 % (0-6); HEMATOCRIT 49.2 % (42.0-52.0); HEMOGLOBIN 17.1 g/dl (14.0-17.9); LYMPHOCYTES # (AUTO) 2.9 X10'3 (1.1-4.8); LYMPHOCYTES % (AUTO) 33.6 % (21-51); MEAN CORPUSCULAR HEMOGLOBIN 30.4 PG (27.0-31.0); MEAN CORPUSCULAR HGB CONC 34.8 g/dL (33.0-36.5); MEAN CORPUSCULAR VOLUME 87.2 FL (78-98); MEAN PLATELET VOLUME 8.2 FL (7.4-10.4); MONOCYTES # (AUTO) 0.7 X10'3 (0-0.9); MONOCYTES % (AUTO) 7.8 % (2-12); NEUTROPHILS % (AUTO) 57.3 % (42-75); PLATELET COUNT 377 X10'3 (140-440); RED BLOOD COUNT 5.64 X10'6 (4.70-6.10); WHITE BLOOD COUNT 8.8 X10'3 (4.5-11.0)
[2018-11-02] MEDS ORDERED: proCHLORperazine 10 MG/2 ml inj IV ONE (23:05)
[2018-11-02] MEDS ORDERED: ketorolac trometh. 30mg/ml inj. IV ONE (23:05)
[2018-11-02] MEDS ORDERED: normal saline 1000ML IV soln IV ONE (23:05)
[2018-11-02] MEDS ORDERED: LORazepam 2 mg/ml vial IV ONE (23:05)
[2018-11-02 23:11] LABS: CLARITY,URINE CLEAR (Clear); COLOR,URINE YELLOW (Yellow); GLUCOSE, URINE 500 mg/dl (Neg); KETONES,URINE >=80 mg/dl (Neg); LEUKOCYTE ESTERASE ,URINE NEGATIVE (Neg); NITRITES, URINE NEGATIVE (Neg); OCCULT BLOOD,URINE NEGATIVE (Neg); PH,URINE 5.5 (4.8-8.0); PROTEIN,URINE TRACE mg/dl (Neg); UROBILINOGEN,URINE 0.2 E.U/dL (0.2-1.0)
[2018-11-02 23:12] LABS: UA COLLECTION TYPE CLN CATCH MIDSTREAM
[2018-11-02 23:17] LABS: BACTERIA,URINE NONE SEEN /HPF (Neg); MUCUS STRANDS NONE SEEN /LPF (Neg); RBC,URINE NONE SEEN /HPF (0-2); SQUAMOUS EPITHELIAL CELL,UR FEW /LPF (FEW); WBC,URINE NONE SEEN /HPF (0-4)
[2018-11-02 23:17] LABS: ALANINE AMINOTRANSFERASE 26 U/L (12-78); ALBUMIN 4.2 G/DL (3.4-5.0); ALBUMIN/GLOBULIN RATIO 1.4 (1.1-1.5); ALKALINE PHOSPHATASE 78 IU/L (46-116); ANION GAP 20 (8-16); ASPARTATE AMINO TRANSFERASE 6 U/L (10-37); BILIRUBIN,TOTAL 1.3 MG/DL (0.1-1.0); BLOOD UREA NITROGEN 19 MG/DL (7-18); BUN/CREATININE RATIO 19.4 (5.4-32.0); CALCIUM 9.3 MG/DL (8.5-10.1); CHLORIDE 96 MMOL/L (99-107); CREATININE 0.98 MG/DL (0.60-1.10); GLUCOSE 321 MG/DL (70-104); POTASSIUM 3.7 MMOL/L (3.5-5.1); SODIUM 133 MMOL/L (135-145); TOTAL CARBON DIOXIDE 17.4 MMOL/L (24-32); TOTAL PROTEIN 7.2 G/DL (6.4-8.2); eGFR > 90 ML/MIN
[2018-11-02] MEDS ORDERED: insulin regular, human 10 units/0.1 ml syringe IV ONE (23:35)
[2018-11-03] MEDS ORDERED: HYDROcodone/acetaminophen 5mg/325mg tablet PO ONE (00:10)
[2018-11-03 00:49] VITALS: BP 109/67
== END 2018-11-03 01:08 | disposition home or self-care (01) ==
LOC: ER 22:08
DX: E86.0 Dehydration (principal); R51 Headache; E10.65 Type 1 diabetes mellitus with hyperglycemia; G89.29 Other chronic pain; F12.90 Cannabis use, unspecified, uncomplicated; Z79.899 Other long term (current) drug therapy; Z79.4 Long term (current) use of insulin
CPT/HCPCS: 36415; 71045; 80053; 81001; 82948; 83605; 84145; 85025; 87040; 93005; 96374; 96375; 99284; J0780; J1815; J1885; J2060; J7030

== ENCOUNTER 2018-12-31 22:11 | Emergency (ER) | payer BC, OTHER ==
[~2018-12-31] VITALS: Ht 175.3 cm; Wt 51.0 kg
[2018-12-31 22:33] VITALS: BP 105/77
== END 2018-12-31 23:56 | disposition home or self-care (01) ==
LOC: ER 22:12
DX: S93.502A Unspecified sprain of left great toe, initial encounter (principal); E11.9 Type 2 diabetes mellitus without complications; G89.29 Other chronic pain; F12.90 Cannabis use, unspecified, uncomplicated; Z79.4 Long term (current) use of insulin; Z79.899 Other long term (current) drug therapy; X58.XXXA Exposure to other specified factors, initial encounter; Y93.89 Activity, other specified; Y92.89 Other specified places as the place of occurrence of the external cause; Y99.8 Other external cause status
CPT/HCPCS: 73660; 99283

== ENCOUNTER 2019-07-03 14:10 | Emergency (ER) | payer BC, OTHER ==
[~2019-07-03] VITALS: Ht 175.3 cm; Wt 62.7 kg
[2019-07-03 14:48] LABS: BASOPHILS % (AUTO) 0.4 % (0-1); EOSINOPHILS # (AUTO) 0.2 X10'3 (0-0.9); EOSINOPHILS % (AUTO) 3.2 % (0-6); HEMATOCRIT 37.6 % (42.0-52.0); HEMOGLOBIN 12.5 g/dl (14.0-17.9); LYMPHOCYTES # (AUTO) 1.8 X10'3 (1.1-4.8); LYMPHOCYTES % (AUTO) 24.1 % (21-51); MEAN CORPUSCULAR HEMOGLOBIN 30.3 PG (27.0-31.0); MEAN CORPUSCULAR HGB CONC 33.3 g/dL (33.0-36.5); MEAN CORPUSCULAR VOLUME 91.1 FL (78-98); MEAN PLATELET VOLUME 7.8 FL (7.4-10.4); MONOCYTES # (AUTO) 0.7 X10'3 (0-0.9); NEUTROPHILS # (AUTO) 4.6 X10'3 (1.8-7.7); NEUTROPHILS % (AUTO) 62.3 % (42-75); PLATELET COUNT 285 X10'3 (140-440); RED BLOOD COUNT 4.13 X10'6 (4.70-6.10); RED CELL DISTRIBUTION WIDTH 15.7 % (11.5-14.5); WHITE BLOOD COUNT 7.3 X10'3 (4.5-11.0)
[2019-07-03 15:02] LABS: ALANINE AMINOTRANSFERASE 97 U/L (12-78); ALBUMIN/GLOBULIN RATIO 0.9 (1.1-1.5); ALKALINE PHOSPHATASE 104 IU/L (46-116); ANION GAP 6 (8-16); ASPARTATE AMINO TRANSFERASE 52 U/L (10-37); BILIRUBIN,TOTAL 0.2 MG/DL (0.1-1.0); BLOOD UREA NITROGEN 18 MG/DL (7-18); CALCIUM 8.6 MG/DL (8.5-10.1); CHLORIDE 107 MMOL/L (99-107); CREATININE 0.58 MG/DL (0.60-1.10); GLUCOSE 94 MG/DL (70-104); SODIUM 143 MMOL/L (135-145); TOTAL CARBON DIOXIDE 30.3 MMOL/L (24-32); TOTAL PROTEIN 6.5 G/DL (6.4-8.2); eGFR > 90 ML/MIN
[2019-07-03 15:03] LABS: POTASSIUM 2.9 MMOL/L (3.5-5.1)
[2019-07-03] MEDS ORDERED: potassium Cl 20 mEq SR tablet PO STA (15:08)
[2019-07-03] MEDS ORDERED: POTA20TA19 PO (15:09)
[2019-07-03] MEDS ORDERED: iohexol 300mg/ml 100ml inj. ONE (15:13)
[2019-07-03 15:42] VITALS: BP 101/67
== END 2019-07-03 16:10 | disposition home or self-care (01) ==
LOC: ER 14:11
DX: E87.6 Hypokalemia (principal); R60.9 Edema, unspecified; E11.9 Type 2 diabetes mellitus without complications; G89.29 Other chronic pain; F12.90 Cannabis use, unspecified, uncomplicated; Z79.4 Long term (current) use of insulin; Z79.899 Other long term (current) drug therapy
CPT/HCPCS: 36415; 71045; 74177; 80053; 83880; 84484; 85025; 93005; 99284; Q9967

== ENCOUNTER 2019-09-06 23:10 | Emergency (ER) | payer OTHER ==
[~2019-09-06] VITALS: Ht 175.3 cm; Wt 67.7 kg
--- NOTE | 2019-09-07 | NUR ---
PT BG 101, TURKEY SANDWICH GIVEN. LABS DRAWN. PT UPDATED ON PLAN OF CARE, NO NEEDS AT THIS TIME
[2019-09-07 00:01] LABS: ALANINE AMINOTRANSFERASE 41 U/L (12-78); ALBUMIN 3.8 G/DL (3.4-5.0); ALBUMIN/GLOBULIN RATIO 1.3 (1.1-1.5); ALKALINE PHOSPHATASE 76 IU/L (46-116); ANION GAP 5 (8-16); ASPARTATE AMINO TRANSFERASE 17 U/L (10-37); BILIRUBIN,TOTAL 0.7 MG/DL (0.1-1.0); BLOOD UREA NITROGEN 18 MG/DL (7-18); BUN/CREATININE RATIO 20.5 (5.4-32.0); CALCIUM 8.8 MG/DL (8.5-10.1); CHLORIDE 109 MMOL/L (99-107); CREATININE 0.88 MG/DL (0.60-1.10); GLUCOSE 102 MG/DL (70-104); POTASSIUM 3.1 MMOL/L (3.5-5.1); SODIUM 144 MMOL/L (135-145); TOTAL CARBON DIOXIDE 29.8 MMOL/L (24-32); TOTAL PROTEIN 6.8 G/DL (6.4-8.2); eGFR > 90 ML/MIN
[2019-09-07 00:53] VITALS: BP 118/86
== END 2019-09-07 00:54 | disposition home or self-care (01) ==
LOC: ER 23:10
DX: E11.649 Type 2 diabetes mellitus with hypoglycemia without coma (principal); G89.29 Other chronic pain; M54.9 Dorsalgia, unspecified; F12.90 Cannabis use, unspecified, uncomplicated; Z79.4 Long term (current) use of insulin; Z79.899 Other long term (current) drug therapy
CPT/HCPCS: 36415; 80053; 82948; 99283